=== PATIENT | female | born 1990 | race Caucasian/White ===

== ENCOUNTER 2017-11-18 09:33 | Emergency (ER) | payer OTHER ==
[2017-11-18] MEDS ORDERED: IBUPROFEN 600 MG TAB PO ONE (09:47)
--- NOTE | 2017-11-18 09:58 | EDPHY ---
H & P Time Seen by Provider: 11/18/17 09:36 HPI/ROS: CHIEF COMPLAINT: Left shoulder pain HISTORY OF PRESENT ILLNESS: Patient states she injured her left shoulder last night. She states "high heels, curbs and whiskey, not a good combination". She was out with friends last night and misstepped off a curb. She states she put her left arm out to catch her, and she landed on pavement. She has some bruises and abrasions to chin, shoulder, left hip but denies loss of consciousness or neck pain. She states when she woke up this morning she could not move her left shoulder without significant pain. Denies numbness or tingling. No weakness. No chest or abdominal pain. No other extremity injuries. REVIEW OF SYSTEMS: Negative except per HPI. General Appearance: Alert, no distress. Eyes: Pupils equal and round no icterus Respiratory: No respiratory distress Neurological: Awake, alert, no focal deficits. Skin: Warm and dry, no rashes. Abrasion contusion to chin, left forehead, left anterior hip/pelvis Musculoskeletal: Neck is supple nontender. Left hand with normal strength, sensation, range of motion in medial radial and ulnar nerve distribution. Wrist and elbow normal. Diffuse tenderness to left shoulder anteriorly with some swelling. Normal passive range of motion to glenohumeral joint. No clavicle deformity. No scapular tenderness. Extremities are otherwise symmetrical, full range of motion, no edema. Psychiatric: Patient is oriented X 3, there is no agitation. Medical/surgical history: Noncontributory Social history: Nonsmoker, works as an hvac design engineer. Smoking Status: Never smoked Constitutional: Initial Vital Signs Temperature (C) 36.6 C 11/18/17 09:40 Heart Rate 75 11/18/17 09:40 Respiratory Rate 18 11/18/17 09:40 Blood Pressure 124/62 H 11/18/17 09:40 O2 Sat (%) 96 11/18/17 09:40 O2 Delivery Mode Room Air Allergies/Adverse Reactions: No Known Allergies Allergy (Unverified 11/18/17 09:39) Home Medications: Medication Instructions Recorded Bc Pills 11/18/17 Medical Decision Making - Diagnostics Imaging Results: Imaging Impressions Clavicle X-Ray 11/18/17 09:47 Impression: Negative. No acute clavicle fracture. Plain films of the left shoulder and clavicle show no fracture, dislocation or subluxation. Imaging: I viewed and interpreted images myself ED Course/Re-evaluation: Ten 30 reviewed x-ray results with patient. Discussed likelihood of rotator cuff or other soft tissue injury. Reviewed range of motion exercises to prevent frozen shoulder including shoulder circles. Will place in sling. Has seen Dr. Miller, orthopedics, for previous right shoulder problems and will follow up with him. Differential Diagnosis: Differential diagnosis includes but is not limited to shoulder dislocation, AC separation, fracture, rotator cuff injury, labrum tear. After evaluation suspect soft tissue injury likely rotator cuff but may also involve labrum tear. Discussed anti-inflammatory treatment, rest, [id number] exercises, orthopedic follow-up as indicated. - Data Points Medications Given: Discontinued Medications Ibuprofen (Motrin) 600 mg PO EDNOW ONE Stop: 11/18/17 09:48 Last Admin: 11/18/17 09:52 Dose: 600 mg Departure - Departure Disposition: Home, Routine, Self-Care Clinical Impression: Injury of left shoulder Qualifiers: Encounter type: initial encounter Qualified Code(s): S49.92XA - Unspecified injury of left shoulder and upper arm, initial encounter Condition: Good Instructions: Rotator Cuff Injury (ED) Additional Instructions: Use sling as needed. Do [id number] exercises including shoulder circles as discussed. Ice several times a day. Ibuprofen and Tylenol for pain. Referrals: Fadia Wang [Primary Care Provider] - As per Instructions Doreen Miller MD [Medical Doctor] - As per Instructions
[2017-11-18 10:47] VITALS: BP 114/72
== END 2017-11-18 10:44 | disposition home or self-care (01) ==
LOC: CED 09:33
DX: S49.92XA Unspecified injury of left shoulder and upper arm, initial encounter (principal); X58.XXXA Exposure to other specified factors, initial encounter
CPT/HCPCS: 73000-PO; 73030-PO; A4565